=== PATIENT | female | born 1955 | race African-American/Black ===

== ENCOUNTER → 2022-06-22 | Day surgery (SDC) | payer MEDICARE, BC ==
[~2022-06-22] MED LIST: ACETAMINOPHEN 325MG TABLET PO PRN; ALLO100T PO; ASPIRIN/SOD BICARB/CITRIC ACID 324MG TAB EFF ONE; ESTR0.3T3 PO; FENTANYL CITRATE/PF 50MCG/ML 2ML VIAL ONE; HEPARIN 1000 UNITS/ML 10ML ONE; IODIXANOL 320MG/ML 100 ML BOTTLE IV ONE; LIDOCAINE HCL 1% 20ML VIAL (Pyxis) INJ ONE; LIDOCAINE HCL/PF 2% 20MG/ML 5 ML/VIAL ONE; LISI20TA31 PO; METO-411 PO; MIDAZOLAM HCL 2 MG/2 ML VIAL ONE; MORPHINE SULFATE 2 MG/ML CPJ (NOT FOR IM USE) IV PRN; NICARDIPINE 100MCG/ML 10ML VIAL (CATH LAB) IV ONE; NITROGLYCERIN 50MCG/ML 10ML VIAL (CATH LAB) IV ONE; ONDANSETRON HCL 4MG/2ML INJ IV PRN; POTA-202 PO; SACU1TAB PO; SEMA0.258; SPIR25TA6 PO; TIRZ10PE; ZOLP10TA2 PO
== END | disposition home or self-care (01) ==
LOC: CCL 07:45
PROVIDERS: ATTEND Specialist
DX: I25.10 Atherosclerotic heart disease of native coronary artery without angina pectoris (principal); I42.9 Cardiomyopathy, unspecified; I12.9 Hypertensive chronic kidney disease with stage 1 through stage 4 chronic kidney disease, or unspecified chronic kidney disease; E11.22 Type 2 diabetes mellitus with diabetic chronic kidney disease; N18.9 Chronic kidney disease, unspecified; E78.5 Hyperlipidemia, unspecified; Z79.899 Other long term (current) drug therapy; Z98.890 Other specified postprocedural states
CPT/HCPCS: 93458; C1725; C1760; C1769; C1893; J1644; J2250; J3010; J3490; Q9967; Z7610; 99152; 99153; G0500